=== PATIENT | female | born 2000 | race Caucasian/White ===

== ENCOUNTER 2024-11-26 12:23 | Outpatient (OUT) | payer OTHER, SELFPAY ==
[2024-11-26 13:21] LABS: Hematocrit 42.9 % (36.0-48.0); Hemoglobin 14.3 g/dL (12.0-16.0); Immature Granulocytes Abs Auto 0.01 10^3/uL (0.00-0.03); Immature Granulocytes Pct Auto 0.1 % (0.0-0.5); Lymphocytes Absolute Auto 2.2 10^3/uL (1.2-3.8); Mean Corpuscular HGB Conc 33.3 g/dL (29.9-35.2); Mean Corpuscular Hemoglobin 31.6 pg (26.7-34.0); Mean Corpuscular Volume 94.7 fL (81.0-99.0); Platelet Count 366 10^3/uL (150-450); Red Blood Count 4.53 10^6/uL (4.20-5.40); White Blood Count 7.2 10^3/uL (4.0-11.0)
[2024-11-26 13:55] LABS: Alanine Aminotransferase 24 U/L (14-59); Albumin Globulin Ratio 1.0; Albumin Level 3.8 g/dL (3.4-5.0); Alkaline Phosphatase 92 U/L (46-116); Anion Gap 12.8; Aspartate Amino Transferase 13 U/L (15-37); Blood Urea Nitrogen 11.0 mg/dL (7.0-18.0); Calcium 9.1 mg/dL (8.5-10.1); Carbon Dioxide 26.3 mmol/L (21.0-32.0); Chloride 106 mmol/L (98-107); Estimated GFR (African America >60 (>=60 mL/min/1.73m^2); Estimated GFR (Non-African Ame >60 (>=60 mL/min/1.73m^2); Globulin 3.7 g/dL; Glucose 86 mg/dL (74-106); Potassium 4.1 mmol/L (3.5-5.1); Sodium 141 mmol/L (136-145); TSH W/ REFLEX FT4 1.102 uIU/mL (0.358-3.740); Total Protein 7.5 g/dL (6.4-8.2)
== END 2024-11-26 12:24 | disposition home or self-care (01) ==
PROVIDERS: PCP Family Medicine; Visit Provider Family Medicine
DX: Z00.00 Encounter for general adult medical examination without abnormal findings (principal); Z11.3 Encounter for screening for infections with a predominantly sexual mode of transmission
CPT/HCPCS: 36415; 80053; 84443; 85025; 87389; 87517